=== PATIENT | female | born 1960 | race Caucasian/White ===

== ENCOUNTER 2016-10-02 13:57 | Observation (INO) | payer OTHER ==
[~2016-10-02] VITALS: Ht 172.7 cm; Wt 99.0 kg
--- NOTE | 2016-10-02 14:01 | ED.REPORT ---
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 She landed hard on her right arm and right rib cage and complains of pain in these areas. En route, she was given morphine (10), ketamine (15), and versed (5 ). She became quite angry with paramedics and didn't want, "anyone to touch her. " Pt has had one kidney removed. Nursing Notes Stated Complaint: FELL OFF HORSE Nursing Notes Reviewed: Yes Allergies: Coded Allergies: metronidazole (Verified Allergy, Intermediate, 10/02/16) can't remember NSAIDS (Non-Steroidal Anti-Inflamma (Verified Adverse Reaction, Unknown, ) R kidney removed General Time Seen by MD: 13:53 Chief Complaint Fall Hx Obtained From: Patient, EMS Arrived By: Ambulance Onset Occurred: Just prior to arrival Symptom Duration: Since onset Caused by: Accidental Location: Arm right Shoulder right Quality: Painful Severity: Current: Severe Recent Healthcare: No recent doctor visit, No recent hospitalization Similar Sx Previous: No Past Medical History Past Medical History renal cell carcinoma Past Surgical History 1 kidney removed Smoking History Unknown if Ever Smoker Ambulatory Status Independent Review of Systems Musculoskeletal: Reports: Extremity pain, Extremity swelling, Joint pain, Joint swelling Neurologic: Denies: Change LOC, Dizziness, Headache, Lightheaded, Syncope, Weakness Complete sys rev & neg: except as marked. Physical Exam Initial Vital Signs Vital Signs (First) Date Time Temp Pulse Resp B/P Pulse Ox O2 Delivery O2 Flow Rate FiO2 10/02/16 14:03 37.1 94 17 135/67 94 Room Air Initial VS: Reviewed General/Constitutional: Awake Alertness: Positive: Sedated Neck: Atraumatic, Supple Head / Eyes: Atraumatic, Normocephalic ENT: Atraumatic, Mucous membranes moist Respiratory / Chest: Atraumatic, Breath sounds NL, Breath sounds = bilat Cardiovascular: Heart rate NL, Regular rhythm, Heart sounds NL Abdomen: No guarding Tenderness/Guarding/Rebound: Positive: Tender diffuse (mild) Right Shoulder: Positive: Tenderness present... Right Upper Arm: Positive: Tenderness present... Skin: Atraumatic, Color NL, No rash Neurologic: Oriented X3, Speech NL Interpretation & Diagnostics Interpretation & Diagnostics: RIGHT SHOULDER X-RAY IMPRESSION: No acute bony abnormality is seen in these 2 views of the right shoulder. Dictated by: Jerrell Yo M.D. on 10/02/2016 at 15:08 Approved by: Jerrell Yo M.D. on 10/02/2016 at 15:[address] IMPRESSION: No acute bony abnormality is identified in the thoracic spine with minimal loss of height changes of T7 and T9 thoracic vertebrae. The appearance of these vertebrae suggest old abnormality. Dictated by: Jerrell Yo M.D. on 10/02/2016 at 16:02 Approved by: Jerrell Yo M.D. on 10/02/2016 at 16:05 Lab Results Interpretation Result Diagram: 10/02/16 1720 10/02/16 1720 Test 10/02/16 17:20 White Blood Count 16.3th/mm3 (3.8-10.1) Red Blood Count 5.00mil/mm3 (3.90-5.20) Hemoglobin 16.0g/dL (12.0-15.6) Hematocrit 44.7% (35.0-46.0) Mean Corpuscular Volume 89.4fL (81-100) Mean Corpuscular Hemoglobin 32.0pg (27.0-35.0) Mean Corpuscular Hemoglobin Concent 35.8% (32.0-37.0) Red Cell Distribution Width 12.6% (12.3-15.4) Platelet Count 197bil/L (150-400) Neutrophils (%) (Auto) 85.3% (40-74) Lymphocytes (%) (Auto) 9.2% (14-46) Monocytes (%) (Auto) 4.4% (4-12) Eosinophils (%) (Auto) 0.4% (0-5) Basophils (%) (Auto) 0.2% (0-3) Sodium Level 137mEq/L (134-144) Potassium Level 4.5mEq/L (3.5-5.2) Chloride Level 97mEq/L (97-108) Carbon Dioxide Level 23mmol/L (18-29) Blood Urea Nitrogen 15mg/dL (6-24) Creatinine 0.81mg/dL (0.57-1.00) Estimat Glomerular Filtration Rate 105mL/min (>59) Glucose Level 205mg/dL (60-99) Calcium Level 9.7mg/dL (8.5-10.1) Total Bilirubin 0.5mg/dL (0.0-1.2) Aspartate Amino Transf (AST/SGOT) 21U/L (0-50) Alanine Aminotransferase (ALT/SGPT) 35U/L (0-32) Alkaline Phosphatase 66U/L (25-150) Total Protein 7.1g/dL (6.4-8.4) Albumin 4.3g/dL (3.4-5.0) X-Ray Interpretation Xray Interpretation: THORACIC SPINE X-RAY IMPRESSION: Minimal loss of height of T7 compared to T6 and T8. Detailed bone is poor in this individual. No old films to compare. This could be an acute or an old finding. Dictated by: Jerrell Yo M.D. on 10/02/2016 at 15:05 Approved by: Jerrell Yo M.D. on 10/02/2016 at 15:08 Interpretation / Wet Read by: Interpret - Radiologist CT C-Spine Interpretation IMPRESSION: No acute abnormalities found in the cervical spine. Mild C5-6 and C6-7 disc degenerative disease is present. Dictated by: Jerrell Yo M.D. on 10/02/2016 at 15:13 Approved by: Jerrell Yo M.D. on 10/02/2016 at 15:20 Study type: CT no contrast Interpretation / Wet Read by: Interpret - Radiologist Re-Eval/Medical Decision Re-Evaluation/Progress : Time of Eval: 16:07 Patient Status: Condition unchanged, No relief Re-Evaluation/Progress Note: Pt rechecked. She is still in an extreme amount of pain. Informed pt of x-ray results that do not appreciate any fracutres. Consultation : Referral / Consult Name: Dale Peacock MD Consulted With: Surgeon Requested Call at: 20:01 Call Returned at: 20:07 Retail Selling Specialist: Will see patient, Accepts admit Counseled Regarding: Diagnosis, Lab results, Need for follow-up, When/why to return to ED Discharge & Departure Impression: Primary Impression: Fall from horse Encounter type: initial encounter Qualified Code: V80.010A - Animal-rider injured by fall from or being thrown from horse in noncollision accident, initial encounter Additional Impression: Multiple fractures of ribs Disposition: ADMITTED TO HOSPITAL Discharge Condition All VS Reviewed: Yes Condition: Stable Referrals: [facility] Scribe Attestation Portion of this note were transcribed by Xin Shah. I, Dr. Barros, personally performed the history, physical exam, and medical decision-making: I reviewed and confirmed the accuracy for the information in the transcribed note. Signed by: liss Rock, 10/02/16 1600 copies to: [facility] Wilton Barros MD Oct 02, 2016 14:00 Xin Shah Oct 02, 2016 14:07 Wilton Barros MD Oct 02, 2016 14:00 Xin Shah Oct 02, 2016 14:07
[2016-10-02 14:03] VITALS: BP 135/67; PULSE 94; RESP 17; O2SAT 94
[2016-10-02] MEDS: HYDROmorphone 1 mg/mL Inj IVPUSH PRN ×3 (14:40→20:13)
[2016-10-02] MEDS: Ondansetron 2 mg/mL 2 mL Inj IVPUSH PRN ×2 (14:41→19:31)
--- NOTE | 2016-10-02 15:09 | DRSVH ---
PROCEDURE: X-RAY THORACIC SPINE, 2 VIEWS INDICATIONS: trauma TECHNIQUE: 3 views of the thoracic spine were acquired. COMPARISON: None. FINDINGS: Bones: Detail is very poor because of patient's size. There is mild scoliosis convex to the left thro ughout the thoracic spine. The T7 thoracic vertebrae appears slightly less in height in the T6 and T8 vertebrae although no fracture of adenosine. This could be an old finding but they're not all images to compare No fractures or dislocations. No suspicious bony lesions. 12 pairs of ribs are noted, an d appear intact where visualized. Soft tissues: No paravertebral stripe thickening. IMPRESSION: Minimal loss of height of T7 compared to T6 and T8. Detailed bone is poor in this individ ual. No old films to compare. This could be an acute or an old finding. Dictated by: Jerrell Yo M.D. on 10/02/2016 at 15:05 Approved by: Jerrell Yo M.D. on 10/02/2016 at 15:08
--- NOTE | 2016-10-02 15:10 | DRSVH ---
PROCEDURE: X-RAY RIGHT SHOULDER, MINIMUM TWO VIEWS ([id number]) INDICATIONS: trauma TECHNIQUE: 2 views of the right shoulder were acquired. COMPARISON: None. FINDINGS: Bones: No fractures or dislocations. No suspicious bony lesions. Visualized ribs appear intact. Soft tissues: No suspicious soft tissue calcifications. IMPRESSION: No acute bony abnormality is seen in these 2 views of the right shoulder. Dictated by: Jerrell Yo M.D. on 10/02/2016 at 15:08 Approved by: Jerrell Yo M.D. on 10/02/2016 at 15:08
--- NOTE | 2016-10-02 15:22 | DRSVH ---
PROCEDURE: CT CERVICAL SPINE WITHOUT CONTRAST ([id number]) INDICATIONS: trauma TECHNIQUE: Noncontrast 3 mm thick sections acquired from the skull base to the T4 level. Sagittal and coronal r eformats were then constructed. For radiation dose reduction, the following was used: automated exp osure control, adjustment of mA and/or kV according to patient size. COMPARISON: None. FINDINGS: Image quality: Good Bones: No fractures or dislocations from the skull base through approximately mid T5.. Visualized s uperior ribs are intact. Mild disc degenerative disease at C5-6 and C6-7 is present. Soft tissues: Prevertebral soft tissues are normal in thickness. No paravertebral hematomas. No ap ical pneumothoraces. IMPRESSION: No acute abnormalities found in the cervical spine. Mild C5-6 and C6-7 disc degenerative disease is present. Dictated by: Jerrell Yo M.D. on 10/02/2016 at 15:13 Approved by: Jerrell Yo M.D. on 10/02/2016 at 15:20
[2016-10-02 15:51] VITALS: BP 147/64; PULSE 88; RESP 16; O2SAT 98
--- NOTE | 2016-10-02 16:07 | DRSVH ---
PROCEDURE: CT THORACIC SPINE WITHOUT CONTRAST ([id number]) INDICATIONS: trauma TECHNIQUE: Noncontrast 3 mm thick sections acquired through the region of interest in the thoracic spine. Sagit taty and coronal reformats were then constructed. For radiation dose reduction, the following was use d: automated exposure control. COMPARISON: None. FINDINGS: Image quality: Good Bones: There is normal overall bony alignment. No acute vertebral body compression fractures. There is minimal loss of height of T7 compared to other adjacent vertebrae and similarly at T9. The appear ance of these vertebra indicates no acute abnormality. No suspicious sclerotic or lytic bony lesions. Central spinal canal is of normal overall caliber. Soft tissues: No paravertebral masses or hematomas. Visualized posteromedial lungs appear clear. IMPRESSION: No acute bony abnormality is identified in the thoracic spine with minimal loss of height changes of T7 and T9 thoracic vertebrae. The appearance of these vertebrae suggest old abnormality. Dictated by: Jerrell Yo M.D. on 10/02/2016 at 16:02 Approved by: Jerrell Yo M.D. on 10/02/2016 at 16:05
[2016-10-02] MEDS ORDERED: HYDROcodone-APAP 5-325 mg Tablet PO ONE (16:10)
[2016-10-02] MEDS ORDERED: HYDROmorphone 1 mg/mL Inj IVPUSH ONE ×3 (16:10→20:05)
[2016-10-02 17:33] VITALS: BP 138/89; PULSE 83; RESP 11; O2SAT 94
[2016-10-02 18:29] LABS: BASOPHILS % (AUTO) 0.2 % (0-3); EOSINOPHILS % (AUTO) 0.4 % (0-5); MONOCYTES % (AUTO) 4.4 % (4-12); Mean Corpuscular Volume 89.4 fL (81-100); NEUTROPHILS % (AUTO) 85.3 % (40-74); Platelet Count 197 bil/L (150-400)
--- NOTE | 2016-10-02 20:02 | DRSVH ---
PROCEDURE: CT CHEST, ABDOMEN AND PELVIS WITH CONTRAST ([id number]) INDICATIONS: trauam TECHNIQUE: After the administration of intravenous contrast, 5 mm thick sections acquired from the lung apices t o the symphysis. 5 mm thick coronal and sagittal reformats were acquired. Additional 7 mm thick cor onal maximum intensity projection (MIP) reformats acquired through the lungs. Optional 10-minute del ayed imaging may be performed from the kidneys to the bladder. For radiation dose reduction, the fol lowing was used: automated exposure control, adjustment of mA and/or kV according to patient size. COMPARISON: None. FINDINGS: Image quality: Excellent. CHEST: Lungs: No pulmonary contusions or lacerations. No acute airspace opacities. No pneumothorax or hem othorax. Central and peripheral airways appear patent and normal in caliber. Mediastinum: No mediastinal hematomas. Heart size is normal. No pericardial effusion. Thoracic ao rta and pulmonary arteries demonstrate normal size and enhancement. No mediastinal or hilar adenopat hy. Esophagus is normal in caliber. No hiatal hernia. Chest wall: No rib fractures. No subcutaneous emphysema. No axillary or supraclavicular adenopathy . Thyroid gland suggests a 7 mm nodule in the right lobe inferiorly.. ABDOMEN: Solid organs: Liver and spleen are normal in size and enhancement, without lacerations. The liver de monstrates fatty infiltration. Gallbladder is within normal limits. Biliary system is non-dilated. Pancreas enhances normally, without transection. No adrenal hematomas. The right kidney has been rem javier in the remote past for cancer. The left kidney is normal in appearance. Peritoneum and bowel: No free fluid or air. Unenhanced bowel loops demonstrate normal wall thicknes s and caliber. Nodes and vessels: No retroperitoneal or mesenteric adenopathy. Aorta and inferior vena cava are no rmal in size and enhancement. Miscellaneous: No ventral hernias. PELVIS: Genitourinary: Bladder wall thickness is normal. Miscellaneous: No inguinal hernias or adenopathy. Bones: Pelvic ring and hip joints appear intact. No vertebral compression fractures. IMPRESSION: 1. There are nondisplaced fractures of the anterior right third, fourth, fifth and sixth ribs. The shirley ngs are clear and there is no pneumothorax 2. There is prominent fat stranding/edema /bruising in the subcutaneous tissues overlying the right g luteus muscles posteriorly. 3. No abnormality to indicate any solid or hollow organ injury is seen. No intra-peritoneal fluid or air is seen. Dictated by: Jerrell Yo M.D. on 10/02/2016 at 19:48 findings were discussed with ER clinician. Approved by: Jerrell Yo M.D. on 10/02/2016 at 20:00
[2016-10-02] MEDS ORDERED: Ondansetron 2 mg/mL 2 mL Inj IVPUSH PRN (20:20)
[2016-10-02] MEDS ORDERED: Alum-Mag Hydrox-Simeth 30 mL Suspension PO PRN (20:20)
[2016-10-02] MEDS ORDERED: HYDROmorphone PCA 0.2 mg/mL 30 mL Inj IV PRN ×2 (20:20→21:15)
[2016-10-02] MEDS ORDERED: MetoCLOpramide 5 mg/mL 2 mL Inj IVPUSH PRN (21:15)
[2016-10-02] MEDS ORDERED: Dextrose 5% 500 ML IV SCH (21:15)
[2016-10-02] MEDS ORDERED: HYDROmorphone 0.5 mg/0.5 mL iSecure Syringe IVPUSH PRN ×2 (21:15→21:30)
[2016-10-02] MEDS ORDERED: Polyethylene Glycol (PEG) 17 Gm Powder PO PRN (21:15)
[2016-10-02 21:19] VITALS: BP 133/84; PULSE 89; RESP 17; O2SAT 96
[2016-10-02 21:45] VITALS: BP 117/74; PULSE 80; RESP 20; O2SAT 96
--- NOTE | 2016-10-02 22:08 | PCM.HPSURG ---
Subjective Date of Service: Oct 02, 2016 Referring Provider: Admitting Physician: Ronnie Hernández MD Primary Care Physician: Nopcp Attending Physician: Ronnie Hernández MD Chief Complaint Chest wall pain History of Present Illness Ms. Gaitan is a 55 year old woman who sustained a fall from horse earlier today and presents with severe chest wall pain. The patient states the incident occurred around 12 noon. She fell from a fully mounted position onto her right shoulder and hip. She thinks she struck her head but was wearing a helmet and did not lose consciousness. She immediately had severe right sided chest wall pain described as sharp, stabbing, and radiating from her sternum through to her back. She felt as if her 'breath was taken away." This pain persisted until she was given narcotic pain medications in the ED. Her severe pain has now given way to a persistent ache with sharp pain triggered by movement. She endorses mild right hip and knee pain. She specifically denies any head ache, neck pain, midline back pain, abdominal pain, nausea, weakness, or numbness/ tingling. She no longer feels short of breath. Garcia imaging revealed her only injury to be right sided rib fractures. Due to her severe pain the general surgery service has been consulted to evaluate the patient for admission to the hospital for observation and intensive pain control. 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 (hysterectomy) Musculoskeletal History Musculoskeletal History: Positive for:: Back Injury (2 vertabres djd) Musculoskeletal Trauma (fell off of horse) Other History Diabetes: No Social History Hx Alcohol Use: Yes (rarely)Hx Substance Use: Yes (rare marijuana) Smoking Status: Unknown if Ever Smoker Review of Systems Additional Information Except as noted in the HPI, a comprehensive review of systems was obtained at the bedside and is otherwise negative. H&P Surgical Exam Exam General: No Acute Distress, Anicteric, Other (Cooperative and follows commands. Falls aslep quickly during exam and does not follow questioning. ) Neck: Supple, Full Range of Motion Lungs: Clear to Auscultation, Normal Air Movement Heart: Exam Unremarkable, Regular Rate/Rhythm, Normal S1, Normal S2, No Murmurs /Rubs/Gallops Abdomen: Benign, Soft, Non-tender, Non-distended Extremities: Distal Pulses Palpable, Warm, No Compartment Syndrom, Other (No long bone tenderness. FROM all extremities. No tenderness of palpation of b/l knee joints, bony pelvis, or b/l greater trochanters of the femur. ) Neuro: Cranial Nerves 2-12 nl, Strength at 5/5 x4 ext, Normal Tone, Sensation Intact Catheters: None Diagnostics: 1. CT C/A/P: -There are nondisplaced fractures of the anterior right third, fourth, fifth and sixth ribs. The lungs are clear and there is no pneumothorax -There is prominent fat stranding/edema /bruising in the subcutaneous tissues overlying the right gluteus muscles posteriorly. -No abnormality to indicate any solid or hollow organ injury is seen. No intra- peritoneal fluid or air is seen. 2. CT T-spine - No acute bony abnormality is identified in the thoracic spine with minimal loss of height changes of T7 and T9 thoracic vertebrae. The appearance of these vertebrae suggest old abnormality. 3. CT C-spine - No acute abnormalities found in the cervical spine. Mild C5-6 and C6-7 disc degenerative disease is present. Assessment & Plan Assessment 55 year old woman s/p fall from horse with right anterior nondisplaced rib fractures 3-6 without underlying pneumothorax. Plan: -Give her severe pain, she will be admitted for pain control with TITLE MANAGER, PO acetaminophen, and gabapentin. -Close observation overnight to ensure no additional injuries present -Low threshold for repeat CXR should she become hypoxic -PT evaluation in AM to ensure she is able to ambulate without severe pain -Encourage IS -Ok for regular diet -Repeat labs in AM Case discussed with Dr. Ronnie Hernández, general surgery on-call. Dale Peacock MD Oct 02, 2016 22:08
[2016-10-02] MEDS ORDERED: Glucose 40% Oral Gel 15 Gm Tube PO PRN (22:25)
[2016-10-02] MEDS ORDERED: HYDR-4003 PO (22:54)
[2016-10-02] MEDS ORDERED: CYCL1DRO BOTH_EYES (23:00)
--- NOTE | 2016-10-02 23:11 | NUR ---
ADMIT; 55 yr old female admitting to room 1031 via gurney from e.. at 2130; fell from her horse, sustaining right rib fx's. See admit screens.
[2016-10-02] MEDS: Heparin 5,000 Unit/mL Inj SUBQ SCH (23:35)
[2016-10-02] MEDS: Dextrose 5% 500 ML IV SCH (23:43)
[2016-10-03] VITALS (11 sets, daily range): BP systolic 111–143; BP diastolic 59–85; PULSE 68–86; RESP 16–20; O2SAT 96–99
--- NOTE | 2016-10-03 00:36 | NUR ---
ACTIVITY; Routine tylenol 975 mg given, then [place] [facility] [place] one to two staff assist- tolerated fairly well. Iv dilaudid given afterward with relief. Addendum: 10/03/16 at 0434 by RAHDA JEFFREY RN Denies nausea. Eating snack.
[2016-10-03] MEDS: HYDROmorphone PCA 0.2 mg/mL 30 mL Inj IV PRN ×2 (01:10→18:00)
--- NOTE | 2016-10-03 03:47 | NUR ---
ACTIVITY; ambulated to bathroom with one assist- tolerated well. C/o spasm type pain upon getting back to bed- form setter helper med encouraged and taken.
[2016-10-03 05:41] LABS: APPEARANCE,URINE CLEAR (CLEAR,HAZY); COLOR,URINE YELLOW (YELLOW); OCCULT BLOOD,URINE NEGATIVE (NEGATIVE); UROBILINOGEN,URINE NORMAL (NORMAL)
[2016-10-03] MEDS: Insulin LISPRO 300 Unit/3 mL Inj SUBQ SCH ×2 (08:00→12:00)
[2016-10-03 08:10] LABS: BASOPHILS % (AUTO) 0.2 % (0-3); EOSINOPHILS % (AUTO) 0.5 % (0-5); MONOCYTES % (AUTO) 7.9 % (4-12); Mean Corpuscular Hemoglobin 31.5 pg (27.0-35.0); Mean Corpuscular Volume 89.9 fL (81-100); NEUTROPHILS % (AUTO) 70.8 % (40-74); Platelet Count 184 bil/L (150-400)
[2016-10-03] MEDS: Heparin 5,000 Unit/mL Inj SUBQ SCH ×3 (09:47→23:34)
--- NOTE | 2016-10-03 13:32 | NUR ---
Evaluation completed. Please go to "Notes" then click on "Assessments and Notes" (bottom left corner of screen). Then select appropriate discipline tab on top of screen.
--- NOTE | 2016-10-03 15:38 | NUR ---
Social Work: Screening/Multi-Disciplinary Rounds D: EMR reviewed. Pt is a 55 y/o female admitted for rib fx per H&P. Pt's insurance is [employer] and NOK is mother, Dari Amador ([phone]). Per MD, pt suffered rib fx from falling off horse. Pt lives at home alone in [place]. DPOA/advanced directive ppw complete and requested upon admission. Pt is not medically stable and is likely to remain hospitalized for 1-2 more days pending OR. Pt likely to discharge home via POV. Per MD, no anticipated SW discharge planning needs at this time. A: Pt who is independent at baseline. P: Pt likely to discharge home via POV. Per MD, no anticipated SW discharge planning needs at this time. SW will continue to follow. KATRIN Reeder
[2016-10-03] MEDS: Pantoprazole 40 mg ER24 Tablet PO SCH (17:49)
[2016-10-03] MEDS: Dextrose 5% 500 ML IV SCH (21:26)
--- NOTE | 2016-10-03 23:32 | NUR ---
Behavior Pt with needy behavior; no doubt to be in pain; does not want to be in hospital. Pt aware of call light and SHOP COOPER button for pain medication and had demonstrated how to use. (~1300) At one point in early afternoon, family member had come out of room stating she needed to use the BR. This RN was on her way back to the room to change her elbow dressing and noted that her light was not on upon entering room. Pt already trying to get OOB and when asked what this RN could do for her, she stated, 'I need to go to the bathroom.' Frantic and in a hurry like she had been waiting a long time. Responded and stated that I had not seen her light on and in the future to call when she began to feel the need. Was interrupted and pt stated, "I hit the button." (~2030) This RN was notified, while in a pt room that pt was having a situation. When able to exit room, spoke with library information technician Angeli (who had been informed by RT) and was informed that pt had been yelling out and was upset that she was incontinent because noone was there to help her to the BR. Was told that RT had come in and assisted pt back to bed, so did not immediately go into pt room d/t beeping IV and empty SHOP COOPER at 1030. Once done, could hear SALES PROFESSIONAL in 1031 next door. Went in as SALES PROFESSIONAL coming out. Pt upset, tearful, stating pain, stating she had her call light on for an hour and noone came to help, had to be incontinent and was yelling and noone came. Apologized to pt for delay and tried to reassure her that it was not our intention to make her feel ignored. library information technician then present and also trying to calm/hear/understand pt concerns and reason for being upset. This RN gave loading dose. Pt stating wanting to be left alone. 30 minutes later noted to be sleeping. Oncoming RN made aware and present to meet pt at 2315; this RN assisted pt to BR and NOC RN assisted back to bed. Care continues.
[2016-10-04] VITALS (7 sets, daily range): BP systolic 123–125; BP diastolic 69–88; PULSE 60–82; RESP 16–20; O2SAT 95–98
--- NOTE | 2016-10-04 03:50 | NUR ---
Refused Tylenol/Pain Patient refused scheduled Tylenol. Patient reported 4/10 rib/back pain. SKIVER MACHINE OPERATOR available. Patient educated on SKIVER MACHINE OPERATOR use and how often SKIVER MACHINE OPERATOR can be used. Patient asked nurse to press SKIVER MACHINE OPERATOR button, nurse educated patient on SKIVER MACHINE OPERATOR protocol and only the patient can press the button. Patient denies nausea at this time. Call light and tray table within reach. Will continue to monitor patient hourly.
[2016-10-04] MEDS: Pantoprazole 40 mg ER24 Tablet PO SCH (06:34)
[2016-10-04] MEDS: Heparin 5,000 Unit/mL Inj SUBQ SCH (09:00)
--- NOTE | 2016-10-04 09:20 | PROG NOTE ---
[address] [address] PROGRESS NOTE PATIENT: SUSAN LANDRY : 1960 MR#: [id number] ADMIT: 10/02/2016 JOB ID: [id number] DATE: 10/04/2016 SUBJECTIVE: The patient is seen in followup. She has been quite emotional this morning and overnight. She does not want to be in the hospital any longer, but also does not know how she is quite to manage at home because she lives at home alone. She is not sure about things like transportation and sleeping. She has quite a bit of pain despite use of the SERVICE DOG TRAINER, although she is able to get up independently and ambulate et cetera. She has no shortness of breath. She does not have a productive cough. She is complaining of a lot of chronic back pain from the hospital bed. OBJECTIVE: Temperature 36.7, pulse 60, blood pressure 125/69, saturation 96% on room air. In general, she is anxious and tearful sitting up in bed. Neck: Trachea is midline. No jugular venous distention. Chest: She has good air movement bilaterally. There is ecchymosis of the right flank. Heart regular rate and rhythm, no murmurs. Extremities no edema. ASSESSMENT AND PLAN: A 55-year-old woman status post fall from a horse with multiple right-sided nondisplaced rib fractures. She is doing well. Today we will switch to oral pain medicines and turn off the SERVICE DOG TRAINER. Physical therapy will see her as well as hospital social worker to see about any additional home support such as home PT or even possibility of a home hospital bed if that is covered by insurance. I think once those things have been sorted out she can be safely discharged from the hospital. Plans are either for discharge later this afternoon or potentially tomorrow. After discharge, she will need to follow up with her primary care provider.
--- NOTE | 2016-10-04 14:52 | NUR ---
Pain Patient's SKIRT CLIPPER was DC'd this AM and patient was moved on to PO pain medication. Patient is currently sitting in a chair and does state that pain has improved if she avoids a lot of movement. Encouraged patient to continue taking deep breaths and coughing and informed patient that it will hurt but doing this will help prevent pneumonia. Patient did report an increase in pain with a shower but is now sitting and states pain has decreased.
[2016-10-04] MEDS ORDERED: HYDROmorphone 0.5 mg/0.5 mL iSecure Syringe IVPUSH ONE (15:20)
--- NOTE | 2016-10-04 15:20 | NUR ---
Patient Advocate Patient stated she was waiting to be discharged after surgeon stated she could go home today. CLAMP REMOVER has been DC'd and patient is ambulating to bathroom independently. No current DC orders in the computer or paper chart-Dr. Ronnie hendricks. MD Betty, in OR and said to call PA for discharge completion. Stefani Akins, Surgical PA, came down to complete patient's discharge and in room talking with patient. PT notes in computer. Patient's family came out of room and requested to speak with a patient advocate. Patient advocates card given to patient.
--- NOTE | 2016-10-04 15:34 | PCM.DISURG ---
Surgical Discharge Instruction Date of Service Oct 04, 2016 Dates of Hospitalization Date of Hospital Admission Oct 02, 2016 at 20:59 Providers Admitting Physician: Ronnie Hernández MD Primary Care Physician: Robyn Song MD Attending Physician: Ronnie Hernández MD Discharge Diagnosis Discharge Diagnosis right anterior nondisplaced rib fractures 3-6 Post Operative diagnosis N/A Diet Discharge Diet: No restrictions Activity Discharge Activity-General: Activity as pain allows, No lifting >15 pounds for 2 weeks, No driving while taking narcotic, Other (Ice applications every 2 hours for 30 minutes. May use frozen paper cup of ice to rub most painful areas (size of palm).) Dressing and Incisional Care Hygiene: May shower Follow Up Plan Follow Up Plan follow up in 1-2 weeks with primary care provider. Follow-up Provider (F9): Robyn Song MD Follow-up appointment: Weeks (2) Call your provider for: Shortness of breath, Other (problematic pain) Dale Roy PA-C Oct 04, 2016 15:34
[2016-10-04] MEDS ORDERED: OXYC5TAB72 PO (15:36)
--- NOTE | 2016-10-04 16:17 | NUR ---
Discharge Patient was discharged home with family via wheelchair to personal vehicle. IVP dilaudid administered before drive to [place] and IV DC'd intact. Dressing changed on right elbow abrasion. Personal belongings left with patient and family. Discharge packet given to patient with prescription hard copys and educational handouts. During education on discharge patient stated "Can I just read this at home and you not go over it?". Informed patient that I really should go over each detail with her and her family there. Patient's family stated that they were listening and would go over the information again later with patient. Completed discharge information with patient and family. Went over following up with PCP in 1-2 weeks or sooner if needed, pain management with medication and ice, and activity restrictions.
--- NOTE | 2016-10-06 15:13 | PCM.DC.SUR ---
Discharge Summary Date of Service: Oct 06, 2016 Date of Hospital Admission: Oct 02, 2016 at 20:59 Date of Operation(s): Not applicable Date of Discharge: Oct 04, 2016 Diagnosis at Time of Discharge Multiple right-sided nondisplaced rib fractures Problems: (1) Multiple fractures of ribs Status: Acute ICD Code: S22.49XA Operation None Brief History and Physical: Ms. Gaitan is a 55 year old woman who sustained a fall from horse earlier today and presents with severe chest wall pain. The patient states the incident occurred around 12 noon. She fell from a fully mounted position onto her right shoulder and hip. She thinks she struck her head but was wearing a helmet and did not lose consciousness. She immediately had severe right sided chest wall pain described as sharp, stabbing, and radiating from her sternum through to her back. She felt as if her 'breath was taken away." This pain persisted until she was given narcotic pain medications in the ED. Her severe pain has now given way to a persistent ache with sharp pain triggered by movement. She endorses mild right hip and knee pain. She specifically denies any head ache, neck pain, midline back pain, abdominal pain, nausea, weakness, or numbness/ tingling. She no longer feels short of breath. [facility] revealed her only injury to be right sided rib fractures. Due to her severe pain the general surgery service has been consulted to evaluate the patient for admission to the hospital for observation and intensive pain control. OBJECTIVE: Temperature 36.7, pulse 60, blood pressure 125/69, saturation 96% on room air. In general, she is anxious and tearful sitting up in bed. Neck: Trachea is midline. No jugular venous distention. Chest: She has good air movement bilaterally. There is ecchymosis of the right flank. Heart regular rate and rhythm, no murmurs. Extremities no edema. Consultants: None Hospital Course: Patient was evaluated in the ED and found to have multiple right sided non displaced rib fractures There were nondisplaced fractures of the anterior right third, fourth, fifth and sixth ribs. The lungs were clear and there was no pneumothorax. She was admitted for stabilization and pain control. On hospital day 2, she was seen by physical therapy who determined no unusual needs at discharge except pain control issues. On hospial day 3, the patient was noted to have nominal control of pain around ribs that was satisfactorily controlled at rest and while sitting. She was then discharged to home with plans to follow up with her PCP in [place] in 1-2 weeks. Pathology: None Disposition: Home in stable condition. Follow-up Plan: follow up with PCP (Robyn Song) in 1-2 weeks. Cyclosporine (Restasis) 1 Each Droperette 1 EACH BOTH_EYES BID (Reported) oxyCODONE (oxyCODONE) 5 Mg Tablet 5-10 MG PO Q4H PRN PRN For Moderate Pain copies to: Robyn Song MD, Samuel L PA-C Oct 06, 2016 15:13
== END 2016-10-04 16:15 | disposition home or self-care (01) ==
LOC: SED 13:57 → EDBD 13:57 → OSC 20:59
PROVIDERS: ADMIT Student in an Organized Health Care Education/Training Program; ATTEND Student in an Organized Health Care Education/Training Program
DX: S22.41XA Multiple fractures of ribs, right side, initial encounter for closed fracture (principal); V80.010A Animal-rider injured by fall from or being thrown from horse in noncollision accident, initial encounter; Y93.52 Activity, horseback riding; R07.89 Other chest pain; Z85.528 Personal history of other malignant neoplasm of kidney; Z90.5 Acquired absence of kidney
CPT/HCPCS: 36415; 71260; 72070; 72125; 72128; 73030; 74177; 80053; 81000; 85025; 94640; 96374; 96375; 96376; 97116; 97161; 99285; G0378; J1170; J1644; J2060; J2405; J2765; J7060; Q9967